=== PATIENT | male | born 1945 | race Caucasian/White ===

== ENCOUNTER 2022-08-02 19:30 | Inpatient (IN) | payer MEDICARE, OTHER ==
[~2022-08-02] VITALS: Ht 170.2 cm; Wt 47.3 kg
[2022-08-02 22:20] VITALS: BP 144/61
[2022-08-02 23:00] VITALS: O2SAT 96
[2022-08-03] VITALS (28 sets, daily range): BP systolic 124–138; BP diastolic 57–65; O2SAT 91–98
[2022-08-03] MEDS: IPRATROPIUM 0.5MG/ALBUTEROL 2.5MG INH SOL UD 3ML (DUONEB) NEB SCH ×4 (02:00→19:47)
[2022-08-03] MEDS ORDERED: ALBUTEROL SULFATE 2.5 MG/0.5 ML INH NEB SOLN NEB PRN (02:15)
[2022-08-03] MEDS ORDERED: ERGO500029 PO (04:22)
[2022-08-03] MEDS ORDERED: LOSA25TA13 PO (04:22)
[2022-08-03] MEDS ORDERED: CYAN100050 PO (04:22)
[2022-08-03] MEDS ORDERED: BUDE10.7 INH (04:22)
[2022-08-03] MEDS ORDERED: VITA-172 PO (04:22)
[2022-08-03] MEDS ORDERED: ELIQ2.5T PO (04:22)
[2022-08-03] MEDS ORDERED: DOXY25SU PO (04:22)
[2022-08-03] MEDS ORDERED: FERR1TAB8 PO (04:22)
[2022-08-03] MEDS ORDERED: CARV3.12 PO (04:22)
[2022-08-03] MEDS ORDERED: AMIO200T49 PO (04:22)
[2022-08-03] MEDS ORDERED: POTA-136 PO (04:22)
[2022-08-03] MEDS ORDERED: HOME MED LIST COMPLETE! XX SCH (04:30)
[2022-08-03 05:14] LABS: APPEARANCE, URINE MANUAL CLOUDY (CLEAR); COLOR, URINE MANUAL AMBER (YELLOW); GLUCOSE, URINE (UA) MANUAL NEGATIVE (NEGATIVE); KETONE, URINE MANUAL OBSCURED mg/dL (NEGATIVE); PROTEIN, URINE MANUAL 3+ mg/dL (NEGATIVE); UROBILINOGEN, URINE MANUAL OBSCURED mg/dl (NORMAL)
[2022-08-03 05:15] LABS: BILIRUBIN, URINE MANUAL OBSCURED (NEGATIVE); BLOOD URINE MANUAL POSITIVE (NEGATIVE); NITRITE, URINE MANUAL OBSCURED (NEGATIVE)
[2022-08-03 05:33] LABS: LEUKOCYTE ESTERASE, URINE MAN TRACE (NEGATIVE)
[2022-08-03 05:34] LABS: BACTERIA, URINE SMALL AMOUNT; HYALINE CAST, URINE NONE SEEN /lpf (0-1); RBC, URINE TNTC /hpf (0-3); SQUAMOUS EPITHELIAL CELL URINE SMALL AMOUNT /hpf (SMALL AMT)
[2022-08-03 05:35] LABS: AMORPHOUS SEDIMENT, URINE SMALL AMOUNT (NEGATIVE)
[2022-08-03] MEDS: CEFDINIR 300 MG CAP (OMNICEF) PO SCH ×2 (08:29→21:50)
[2022-08-03 08:52] LABS: BASO % 0.3 % (0.0-1.0); EOS # 0.1 10^3/uL (0.0-0.5); HEMATOCRIT 34.4 % (42.0-52.0); HEMOGLOBIN 10.4 g/dl (13.5-17.5); LYMPH # 0.2 10^3/uL (1.5-5.0); LYMPH % 3.4 % (24.0-44.0); MEAN CORPUSCULAR HEMOGLOBIN 26.5 pg (27.0-33.0); MEAN CORPUSCULAR HGB CONC 30.2 g/dl (32.0-36.5); MEAN CORPUSCULAR VOLUME 87.5 fl (80.0-96.0); MONO # 0.5 10^3/uL (0.0-0.8); NEUTROPHILS # 6.2 10^3/uL (1.5-8.5); NEUTROPHILS % 88.2 % (36.0-66.0); PLATELET COUNT, AUTOMATED 256 10^3/uL (150-450); RED BLOOD COUNT 3.93 10^6/uL (4.30-6.10)
[2022-08-03] MEDS ORDERED: APIXABAN 2.5 MG TAB (ELIQUIS) PO SCH (09:00)
[2022-08-03] MEDS ORDERED: POTASSIUM CHLORIDE 10MEQ SR TABLET PO SCH (09:00)
[2022-08-03] MEDS ORDERED: FUROSEMIDE 40MG/4ML VIAL (J1940) IV SCH (09:00)
[2022-08-03 09:18] LABS: BLOOD UREA NITROGEN 22 MG/DL (9-23); CALCIUM LEVEL 8.8 MG/DL (8.3-10.6); CARBON DIOXIDE LEVEL 34 MMOL/L (20-31); CHLORIDE LEVEL 99 MMOL/L (98-107); CREATININE FOR GFR 0.84 MG/DL (0.70-1.30); GLOMERULAR FILTRATION RATE > 60.0 (>42); GLUCOSE, FASTING 105 MG/DL (74-106); MAGNESIUM LEVEL 1.9 MG/DL (1.8-2.4); POTASSIUM SERUM 3.1 MMOL/L (3.5-5.1); SODIUM LEVEL 143 MMOL/L (136-145)
[2022-08-03] MEDS ORDERED: POTASSIUM CHLORIDE 10MEQ SR TABLET PO ONE (09:50)
[2022-08-03] MEDS: CARVedilol 3.125 MG TAB PO SCH ×2 (12:06→21:00)
[2022-08-03] MEDS: LOSARTAN 25 MG TAB PO SCH (12:06)
[2022-08-03] MEDS: AMIODARONE 200 MG TAB (PACERONE) PO SCH ×2 (12:06→21:00)
[2022-08-03] MEDS: FERROUS SULFATE 325MG TAB PO SCH (12:49)
[2022-08-03] MEDS: FUROSEMIDE 40MG/4ML VIAL (J1940) IV SCH ×2 (13:18→21:52)
[2022-08-03] MEDS ORDERED: methylPREDNISolone 125MG 2ML VIAL IV ONE (16:30)
[2022-08-03] MEDS: predniSONE 20 MG TAB PO SCH (17:48)
[2022-08-03] MEDS: SYMBICORT 160/4.5MCG INHALER 6GM INH SCH (19:46)
[2022-08-03] MEDS: POTASSIUM CHLORIDE 10MEQ SR TABLET PO SCH (21:51)
[2022-08-03] MEDS: APIXABAN 5 MG TAB (ELIQUIS) PO SCH (21:51)
[2022-08-03] MEDS: DOXYCYCLINE HYCLATE 100MG TABLET PO SCH (21:51)
[2022-08-04] VITALS (10 sets, daily range): BP systolic 115–131; BP diastolic 54–70; O2SAT 94–98
[2022-08-04] MEDS: IPRATROPIUM 0.5MG/ALBUTEROL 2.5MG INH SOL UD 3ML (DUONEB) NEB SCH ×4 (01:28→21:05)
[2022-08-04] MEDS: FUROSEMIDE 40MG/4ML VIAL (J1940) IV SCH (05:49)
[2022-08-04 05:50] LABS: HEMATOCRIT 32.7 % (42.0-52.0); MEAN CORPUSCULAR HEMOGLOBIN 26.6 pg (27.0-33.0); MEAN CORPUSCULAR HGB CONC 30.6 g/dl (32.0-36.5); PLATELET COUNT, AUTOMATED 240 10^3/uL (150-450); RED BLOOD COUNT 3.76 10^6/uL (4.30-6.10); WHITE BLOOD COUNT 5.6 10^3/uL (4.0-10.0)
[2022-08-04 07:03] LABS: BLOOD UREA NITROGEN 22 MG/DL (9-23); CALCIUM LEVEL 8.8 MG/DL (8.3-10.6); CARBON DIOXIDE LEVEL 42 MMOL/L (20-31); CHLORIDE LEVEL 94 MMOL/L (98-107); CREATININE FOR GFR 0.88 MG/DL (0.70-1.30); GLOMERULAR FILTRATION RATE > 60.0 (>42); GLUCOSE, FASTING 150 MG/DL (74-106); MAGNESIUM LEVEL 1.7 MG/DL (1.8-2.4); PHOSPHORUS LEVEL 4.3 MG/DL (2.4-5.1); POTASSIUM SERUM 3.4 MMOL/L (3.5-5.1); SODIUM LEVEL 143 MMOL/L (136-145)
[2022-08-04] MEDS ORDERED: POTASSIUM CHLORIDE 10MEQ SR TABLET PO ONE (07:35)
[2022-08-04] MEDS: SYMBICORT 160/4.5MCG INHALER 6GM INH SCH ×2 (07:39→21:05)
[2022-08-04] MEDS ORDERED: MAG SULF 1GM/100ML (MAG RUN) 1 GM in IV 1 EA IV ONE (07:45)
[2022-08-04] MEDS: LOSARTAN 25 MG TAB PO SCH (09:00)
[2022-08-04] MEDS ORDERED: predniSONE 20 MG TAB PO SCH (09:00)
[2022-08-04] MEDS: CARVedilol 3.125 MG TAB PO SCH ×2 (09:00→21:08)
[2022-08-04] MEDS: AMIODARONE 200 MG TAB (PACERONE) PO SCH ×2 (09:00→21:07)
[2022-08-04] MEDS: CEFDINIR 300 MG CAP (OMNICEF) PO SCH ×2 (09:06→21:04)
[2022-08-04] MEDS: predniSONE 20 MG TAB PO SCH (09:06)
[2022-08-04] MEDS: APIXABAN 5 MG TAB (ELIQUIS) PO SCH ×2 (09:07→21:04)
[2022-08-04] MEDS: DOXYCYCLINE HYCLATE 100MG TABLET PO SCH ×2 (09:07→21:04)
[2022-08-04] MEDS: FERROUS SULFATE 325MG TAB PO SCH (09:07)
[2022-08-04] MEDS: POTASSIUM CHLORIDE 10MEQ SR TABLET PO SCH ×2 (09:07→21:04)
[2022-08-04] MEDS: CYANOCOBALAMIN 500 MCG TAB PO SCH (09:07)
[2022-08-04] MEDS ORDERED: MIRALAX *UNIT DOSE* 17GM PACKET PO PRN (11:45)
[2022-08-04] MEDS ORDERED: MOM 30ML SUSPENSION UDC PO PRN (11:45)
[2022-08-04] MEDS: ENTRESTO 24-26MG TABLET (SACUBITRIL/VALSARTAN) PO SCH (21:04)
[2022-08-05] MEDS: IPRATROPIUM 0.5MG/ALBUTEROL 2.5MG INH SOL UD 3ML (DUONEB) NEB SCH ×4 (02:09→18:08)
[2022-08-05 06:00] VITALS: BP 122/65
[2022-08-05] MEDS: SYMBICORT 160/4.5MCG INHALER 6GM INH SCH ×2 (07:45→18:08)
[2022-08-05 08:14] LABS: BLOOD UREA NITROGEN 33 MG/DL (9-23); CALCIUM LEVEL 9.3 MG/DL (8.3-10.6); CARBON DIOXIDE LEVEL 41 MMOL/L (20-31); CHLORIDE LEVEL 93 MMOL/L (98-107); CREATININE FOR GFR 1.04 MG/DL (0.70-1.30); GLOMERULAR FILTRATION RATE > 60.0 (>42); GLUCOSE, FASTING 128 MG/DL (74-106); MAGNESIUM LEVEL 2.5 MG/DL (1.8-2.4); PHOSPHORUS LEVEL 3.1 MG/DL (2.4-5.1); POTASSIUM SERUM 4.3 MMOL/L (3.5-5.1); SODIUM LEVEL 140 MMOL/L (136-145)
[2022-08-05] MEDS: AMIODARONE 200 MG TAB (PACERONE) PO SCH ×2 (09:00→21:00)
[2022-08-05] MEDS: CARVedilol 3.125 MG TAB PO SCH ×2 (09:00→22:49)
[2022-08-05] MEDS: CEFDINIR 300 MG CAP (OMNICEF) PO SCH ×2 (09:16→22:54)
[2022-08-05] MEDS: predniSONE 20 MG TAB PO SCH (09:17)
[2022-08-05] MEDS: CYANOCOBALAMIN 500 MCG TAB PO SCH (09:18)
[2022-08-05] MEDS: FERROUS SULFATE 325MG TAB PO SCH (09:18)
[2022-08-05] MEDS: ENTRESTO 24-26MG TABLET (SACUBITRIL/VALSARTAN) PO SCH ×2 (09:18→22:32)
[2022-08-05] MEDS: APIXABAN 5 MG TAB (ELIQUIS) PO SCH ×2 (09:19→22:32)
[2022-08-05] MEDS: POTASSIUM CHLORIDE 10MEQ SR TABLET PO SCH ×2 (09:19→22:32)
[2022-08-05] MEDS: DOXYCYCLINE HYCLATE 100MG TABLET PO SCH ×2 (09:19→22:33)
[2022-08-06] MEDS: IPRATROPIUM 0.5MG/ALBUTEROL 2.5MG INH SOL UD 3ML (DUONEB) NEB SCH ×4 (01:54→20:00)
[2022-08-06 06:00] VITALS: BP 114/50
[2022-08-06] MEDS: SYMBICORT 160/4.5MCG INHALER 6GM INH SCH ×2 (07:28→20:18)
[2022-08-06] MEDS ORDERED: FUROSEMIDE 40 MG TAB PO SCH (09:00)
[2022-08-06] MEDS: AMIODARONE 200 MG TAB (PACERONE) PO SCH ×2 (09:00→20:25)
[2022-08-06] MEDS: CARVedilol 3.125 MG TAB PO SCH ×2 (09:00→20:26)
[2022-08-06] MEDS: APIXABAN 5 MG TAB (ELIQUIS) PO SCH ×2 (09:57→20:25)
[2022-08-06] MEDS: predniSONE 20 MG TAB PO SCH (09:57)
[2022-08-06] MEDS: ENTRESTO 24-26MG TABLET (SACUBITRIL/VALSARTAN) PO SCH ×2 (09:57→20:25)
[2022-08-06] MEDS: POTASSIUM CHLORIDE 10MEQ SR TABLET PO SCH ×2 (09:58→20:27)
[2022-08-06] MEDS: FERROUS SULFATE 325MG TAB PO SCH (09:58)
[2022-08-06] MEDS: DOXYCYCLINE HYCLATE 100MG TABLET PO SCH ×2 (09:58→20:25)
[2022-08-06] MEDS: CYANOCOBALAMIN 500 MCG TAB PO SCH (09:58)
[2022-08-06] MEDS: CEFDINIR 300 MG CAP (OMNICEF) PO SCH ×2 (10:05→20:25)
[2022-08-07] MEDS: IPRATROPIUM 0.5MG/ALBUTEROL 2.5MG INH SOL UD 3ML (DUONEB) NEB SCH ×3 (00:37→13:50)
[2022-08-07 06:00] VITALS: BP 115/56
[2022-08-07 06:31] LABS: HEMATOCRIT 35.6 % (42.0-52.0); HEMOGLOBIN 10.5 g/dl (13.5-17.5); MEAN CORPUSCULAR HEMOGLOBIN 26.3 pg (27.0-33.0); MEAN CORPUSCULAR HGB CONC 29.5 g/dl (32.0-36.5); MEAN CORPUSCULAR VOLUME 89.2 fl (80.0-96.0); PLATELET COUNT, AUTOMATED 245 10^3/uL (150-450); RED BLOOD COUNT 3.99 10^6/uL (4.30-6.10); WHITE BLOOD COUNT 9.9 10^3/uL (4.0-10.0)
[2022-08-07 07:02] LABS: BLOOD UREA NITROGEN 32 MG/DL (9-23); CALCIUM LEVEL 8.4 MG/DL (8.3-10.6); CARBON DIOXIDE LEVEL > 40.0 MMOL/L (20-31); CHLORIDE LEVEL 92 MMOL/L (98-107); CREATININE FOR GFR 0.88 MG/DL (0.70-1.30); GLOMERULAR FILTRATION RATE > 60.0 (>42); GLUCOSE, FASTING 117 MG/DL (74-106); PHOSPHORUS LEVEL 3.7 MG/DL (2.4-5.1); POTASSIUM SERUM 5.1 MMOL/L (3.5-5.1); SODIUM LEVEL 137 MMOL/L (136-145)
[2022-08-07] MEDS: SYMBICORT 160/4.5MCG INHALER 6GM INH SCH (07:36)
[2022-08-07 09:00] VITALS: BP 120/53
[2022-08-07] MEDS: AMIODARONE 200 MG TAB (PACERONE) PO SCH (09:00)
[2022-08-07] MEDS: CARVedilol 3.125 MG TAB PO SCH (09:00)
[2022-08-07] MEDS: ENTRESTO 24-26MG TABLET (SACUBITRIL/VALSARTAN) PO SCH (09:43)
[2022-08-07] MEDS: DOXYCYCLINE HYCLATE 100MG TABLET PO SCH (09:44)
[2022-08-07] MEDS: predniSONE 20 MG TAB PO SCH (09:44)
[2022-08-07] MEDS: FERROUS SULFATE 325MG TAB PO SCH (09:45)
[2022-08-07] MEDS: POTASSIUM CHLORIDE 10MEQ SR TABLET PO SCH (09:45)
[2022-08-07] MEDS: CYANOCOBALAMIN 500 MCG TAB PO SCH (09:45)
[2022-08-07] MEDS: APIXABAN 5 MG TAB (ELIQUIS) PO SCH (09:46)
[2022-08-07] MEDS ORDERED: PROA1AER2 INH (11:25)
[2022-08-07] MEDS ORDERED: ELIQ5TAB PO (11:25)
[2022-08-07] MEDS ORDERED: TREL1AER PO (11:25)
[2022-08-07] MEDS ORDERED: VENTAER INH (11:38)
[2022-08-07] MEDS ORDERED: BUDE10.7 INH (11:39)
[2022-08-07] MEDS ORDERED: FURO20TA2 PO (11:51)
[2022-08-07] MEDS ORDERED: acetaZOLAMIDE 500MG ER CAP PO ONE (12:00)
[2022-08-07] MEDS ORDERED: PRED20TA PO (12:04)
[2022-08-07] MEDS ORDERED: ALBU8.5H INH (12:04)
[2022-08-07] MEDS ORDERED: METO25TA PO (12:04)
[2022-08-07 12:09] VITALS: BP 107/50
== END 2022-08-07 14:18 | disposition home health service (06) | DRG 291 ==
LOC: M PCU 22:10 → M MSPAV 08-04 11:16
PROVIDERS: ADMIT Internal Medicine Nephrology; ATTEND Internal Medicine
DX: I11.0 Hypertensive heart disease with heart failure (principal); J96.21 Acute and chronic respiratory failure with hypoxia; I50.23 Acute on chronic systolic (congestive) heart failure; J44.1 Chronic obstructive pulmonary disease with (acute) exacerbation; Z79.899 Other long term (current) drug therapy; Z91.041 Radiographic dye allergy status; I48.91 Unspecified atrial fibrillation; Z79.01 Long term (current) use of anticoagulants; Z95.1 Presence of aortocoronary bypass graft; Z99.81 Dependence on supplemental oxygen; Z95.0 Presence of cardiac pacemaker; D50.9 Iron deficiency anemia, unspecified; E87.6 Hypokalemia; E83.42 Hypomagnesemia; R31.9 Hematuria, unspecified